=== PATIENT | male | born 1975 | race Caucasian/White ===

== ENCOUNTER 2024-03-27 16:27 | Inpatient (IN) | payer OTHER ==
[2024-03-27] MEDS ORDERED: chlordiazePOXIDE HCL 25 MG CAPSULE PO PRN (17:58)
[2024-03-27] MEDS ORDERED: ONDANSETRON *ODT* 4 MG TABLET SL PRN (18:00)
[2024-03-27] MEDS ORDERED: DICYCLOMINE HCL 10 MG CAPSULE PO PRN (18:00)
[2024-03-27] MEDS ORDERED: ACETAMINOPHEN 325 MG TABLET (FP) PO PRN (18:00)
[2024-03-27] MEDS ORDERED: BISMUTH SUBSALICYLATE 524 MG/30 ML PO PRN (18:00)
[2024-03-27] MEDS ORDERED: MAGNESIUM HYDROX 2400MG/30ML ORAL SUSPENSION 30 ML CUP PO PRN (18:00)
[2024-03-27] MEDS ORDERED: BENZONATATE 200 MG CAPSULE PO PRN (18:00)
[2024-03-27] MEDS ORDERED: IBUPROFEN 400 MG TABLET (FP) PO PRN (18:00)
[2024-03-27] MEDS ORDERED: BENZOCAINE/MENTHOL (CHLORASEPTIC ) LOZENGE MM PRN (18:00)
[2024-03-27] MEDS ORDERED: POLYETHYLENE GLYCOL (HEALTHYLAX) 3350 17 GM PACKET PO PRN (18:00)
[2024-03-27] MEDS ORDERED: guaiFENesin 600 MG TABLET.ER (FP) PO PRN (18:00)
[2024-03-27] MEDS ORDERED: LOPERAMIDE HCL 2 MG CAPSULE PO PRN (18:00)
[2024-03-27 20:20] VITALS: BMI 28.3
[2024-03-27] MEDS: chlordiazePOXIDE HCL 25 MG CAPSULE PO ONE (20:34)
[2024-03-27] MEDS: propRANOLol HCL 10 MG TABLET PO ONE (21:27)
[2024-03-27] MEDS: MELATONIN 5 MG TABLETS PO SCH (22:32)
[2024-03-27] MEDS: levETIRAcetam 500 MG TABLET (FP) PO SCH (22:32)
[2024-03-27] MEDS: chlordiazePOXIDE HCL 25 MG CAPSULE PO SCH (22:32)
[2024-03-27] MEDS: THIAMINE 100 MG TABLET PO SCH (22:32)
[2024-03-27] MEDS: hydrOXYzine PAMOATE 25 MG CAPSULE (FP) PO PRN (22:36)
[2024-03-28] MEDS: METHOCARBAMOL 500 MG TABLET PO PRN (05:36)
[2024-03-28] MEDS: PRENATAL VITAMINS W/ FOLIC ACID TABLET (FP) PO SCH (10:48)
[2024-03-28 11:42] LABS: HEMATOCRIT 41.6 % (35.4-49); HEMOGLOBIN 13.9 GM/dL (11.7-16.9); MCH 35.1 pg (25.7-33.7); MCHC 33.5 g/dl (32.0-35.9); MEAN CELL VOLUME 104.7 fl (80-96); MEAN PLT VOLUME 7.1 fl (7.5-11.1); PLATELET COUNT 221 10^3/uL (134-434); RBC 3.97 M/mm3 (4.00-5.60); RDW 14.2 % (11.9-15.9); WHITE BLOOD COUNT 5.3 K/mm3 (4.0-10.0)
[2024-03-28 16:30] LABS: POTASSIUM 3.9 mmol/L (3.5-5.1)
[2024-03-28 16:34] LABS: CALCIUM 8.6 mg/dL (8.5-10.1)
[2024-03-28 16:35] LABS: ALBUMIN 3.4 g/dl (3.4-5.0); BLOOD UREA NITROGEN 10.8 mg/dL (7-18)
[2024-03-28 16:38] LABS: CREATININE 0.8 mg/dL (0.55-1.3)
[2024-03-28 16:39] LABS: BILIRUBIN,TOTAL 0.9 mg/dL (0.2-1); TOT PROT 6.4 g/dl (6.4-8.2)
[2024-03-28] MEDS: IBUPROFEN 600 MG TABLET (FP) PO PRN (17:40)
[2024-03-29] MEDS: chlordiazePOXIDE HCL 25 MG CAPSULE PO SCH (06:09)
[2024-03-30] MEDS: chlordiazePOXIDE HCL 10 MG CAPSULE PO SCH (05:23)
[2024-03-31] MEDS: chlordiazePOXIDE HCL 10 MG CAPSULE PO PRN
[2024-03-31] MEDS: chlordiazePOXIDE HCL 10 MG CAPSULE PO SCH (05:22)
[2024-03-31] MEDS: MAG HYDROX/AL HYDROX/SIMETH 30 ML UNIT-DOSE CUP PO PRN (15:19)
[2024-04-01] MEDS: chlordiazePOXIDE HCL 10 MG CAPSULE PO ONE (05:25)
[2024-04-01] MEDS: NALOXONE (NYS OPIOID OVERDOSE PROGRAM) 4 MG/0.1 ML SPRAY NS ONE (09:12)
[2024-04-01 09:25] VITALS: BP 119/83; PULSE 92; RESP 17; TEMP 97.6
== END 2024-04-01 09:29 | disposition home or self-care (01) | DRG 897 ==
LOC: YASAS 16:27 → Y3N 20:10
PROVIDERS: ADMIT Allergy & Immunology; ATTEND Allergy & Immunology
PROC: HZ2ZZZZ Detoxification Services for Substance Abuse Treatment (ICD-10-PCS; principal; 2024-03-27)
DX: F10.230 Alcohol dependence with withdrawal, uncomplicated (principal); F13.20 Sedative, hypnotic or anxiolytic dependence, uncomplicated; F12.20 Cannabis dependence, uncomplicated; F31.9 Bipolar disorder, unspecified; F41.9 Anxiety disorder, unspecified; E78.5 Hyperlipidemia, unspecified; G40.909 Epilepsy, unspecified, not intractable, without status epilepticus; Z87.891 Personal history of nicotine dependence
CPT/HCPCS: 36415; 80053; 80305; 80307; 85027; 86780; 93005; 93010